=== PATIENT | female | born 1955 | race Caucasian/White ===

== ENCOUNTER 2019-10-28 05:52 | Inpatient (IN) ==
[2019-10-28] MEDS ORDERED: ONDANSETRON 4 MG/2 ML VIAL IV STA ×2 (06:39→10:00)
[2019-10-28] MEDS ORDERED: SODIUM CHLORIDE 0.9% 2,000 ML IV STA (06:39)
[2019-10-28 07:08] LABS: Basophils % 0.5 % (0.0-0.8); Eosinophils # 0.1 10*3/uL (0.0-0.87); Eosinophils % 0.8 % (0.00-10.9); Hematocrit 51.9 VOL% (35.7-47.0); Hemoglobin 17.6 GM/DL (12.0-16.0); Immature Granulocytes % 0.3 %; Immature Granulocytes Absolute 0.02 #; Lymphocytes # 1.5 10*3/uL (1.4-4.0); Lymphocytes % 24.8 % (21.3-54.2); Mean Corpuscular HGB Conc 33.9 GM/DL (32-36); Mean Platelet Volume 9.5 FL (9.6-12.0); Neutrophils % 60.6 % (38.7-73.9); Platelet Count 343 T/CUMM (130-400); Red Blood Count 5.58 MC/CUMM (3.8-5.5); Red Cell Distribution Width 12.5 % (9.3-17.3)
[2019-10-28 07:26] LABS: Albumin 4.7 G/DL (3.4-5.0); Bilirubin,Total 0.9 MG/DL (0.2-1.0); Calcium 9.6 MG/DL (8.5-10.1); Total Protein 8.9 G/DL (6.4-8.3)
[2019-10-28] MEDS ORDERED: HYDROmorphone 2 MG/1 ML VIAL ONE (09:58)
[2019-10-28] MEDS ORDERED: HYDROmorphone 2 MG/1 ML VIAL IV STA (10:00)
[2019-10-28] MEDS ORDERED: ACETAMINOPHEN 325 MG TABLET PO PRN (12:16)
[2019-10-28] MEDS: ENOXAPARIN 30 MG/0.3 ML SYRINGE SUBCUT SCH (13:45)
[2019-10-28] MEDS: SODIUM CHLORIDE 0.9% 1,000 ML IV SCH ×2 (13:46→21:05)
[2019-10-28] MEDS: ONDANSETRON 4 MG/2 ML VIAL IV PRN ×3 (14:00→21:01)
[2019-10-28] MEDS ORDERED: cefTRIAXone 1,000 MG in SYRINGE 1 EACH IV ONE (14:56)
[2019-10-28] MEDS ORDERED: LORazepam 1 MG TABLET PO PRN (14:59)
[2019-10-28 15:39] LABS: Apearance,Urine Slightly Hazy (Clear); Bacteria,Urine Occasional /HPF (Few); Bilirubin,Urine Negative (Negative); Blood, Urine Negative (Negative); Glucose,Urine (UA) Negative (Negative); Hyaline Casts,Urine 58 /LPF (0-3); Ketones,Urine 20 mg/dL (Negative); Mucus,Urine Moderate /LPF (Occasional); Nitrite,Urine Negative (Negative); Protein,Urine 30 MG/DL; RBC,Urine 5 /HPF (0-4); Squamous Epithelial Cell,Urine Occasional /HPF (0-10); Urine Color Amber (Yellow); Urine Specific Gravity 1.023 (1.001-1.035); Urine Urobilinogen < 2.0 EU/DL (0.2-1.0); WBC,Urine 5 /HPF (0-6)
[2019-10-28] MEDS: MORPHINE 4 MG/1 ML VIAL IV PRN ×2 (16:31→21:02)
[2019-10-28] MEDS: QUEtiapine 25 MG TABLET PO SCH (21:04)
[2019-10-28] MEDS: buPROPion 75 MG TABLET PO SCH (21:28)
[2019-10-29] MEDS: ONDANSETRON 4 MG/2 ML VIAL IV PRN ×4 (03:09→22:11)
[2019-10-29] MEDS: MORPHINE 4 MG/1 ML VIAL IV PRN ×4 (03:19→22:10)
[2019-10-29] MEDS: SODIUM CHLORIDE 0.9% 1,000 ML IV SCH ×4 (03:33→12:59)
[2019-10-29 06:47] LABS: Basophils % 0.3 % (0.0-0.8); Eosinophils # 0.1 10*3/uL (0.0-0.87); Eosinophils % 1.6 % (0.00-10.9); Hematocrit 40.3 VOL% (35.7-47.0); Hemoglobin 13.4 GM/DL (12.0-16.0); Immature Granulocytes % 0.2 %; Immature Granulocytes Absolute 0.01 #; Lymphocytes # 1.5 10*3/uL (1.4-4.0); Lymphocytes % 24.6 % (21.3-54.2); Mean Corpuscular HGB Conc 33.3 GM/DL (32-36); Mean Corpuscular Volume 94.6 FL (87-102); Mean Platelet Volume 9.5 FL (9.6-12.0); Monocytes % 12.6 % (1.7-12.7); Neutrophils % 60.7 % (38.7-73.9); Platelet Count 223 T/CUMM (130-400); Red Blood Count 4.26 MC/CUMM (3.8-5.5); Red Cell Distribution Width 12.7 % (9.3-17.3); White Blood Count 6.1 T/CUMM (4-12)
[2019-10-29] MEDS ORDERED: cefTRIAXone 1,000 MG in SYRINGE 1 EACH IV ONE (07:00)
[2019-10-29 07:23] LABS: Albumin 3.3 G/DL (3.4-5.0); Bilirubin,Total 0.5 MG/DL (0.2-1.0); Calcium 7.9 MG/DL (8.5-10.1); Osmolality,Calculated 287.3 MOS/KG (273-304); Thyroid Stimulating Hormone 1.94 uIU/ml (0.358-3.74); Total Protein 6.2 G/DL (6.4-8.3)
[2019-10-29] MEDS ORDERED: cefTRIAXone 1,000 MG VIAL ONE (08:59)
[2019-10-29] MEDS ORDERED: PANTOPRAZOLE 40 MG TABLET PO SCH (09:00)
[2019-10-29] MEDS ORDERED: SUGAMMADEX 200 MG/2 ML VIAL IV ONE (09:19)
[2019-10-29] MEDS: CITALOPRAM 20 MG TABLET PO SCH (12:56)
[2019-10-29] MEDS: atenoloL 50 MG TABLET PO SCH (12:56)
[2019-10-29] MEDS: CYANOCOBALAMIN 500 MCG TABLET PO SCH (12:58)
[2019-10-29] MEDS: buPROPion 75 MG TABLET PO SCH ×2 (12:58→20:19)
[2019-10-29] MEDS: PANTOPRAZOLE 40 MG TABLET PO SCH (12:58)
[2019-10-29] MEDS: ENOXAPARIN 30 MG/0.3 ML SYRINGE SUBCUT SCH (12:59)
[2019-10-29] MEDS ORDERED: MIDAZOLAM 2 MG/2 ML VIAL ONE (16:56)
[2019-10-29] MEDS ORDERED: LIDOCAINE 2% 5 ML VIAL ONE (16:56)
[2019-10-29] MEDS ORDERED: propofoL 200 MG/20 ML VIAL IV ONE (16:56)
[2019-10-29] MEDS ORDERED: fentaNYL 100 MCG/2 ML VIAL ONE (16:56)
[2019-10-29] MEDS ORDERED: ROCURONIUM 100 MG/10 ML VIAL IV ONE (16:57)
[2019-10-29] MEDS ORDERED: PHENYLEPHRINE 1 MG/10 ML SYRINGE IV ONE (16:57)
[2019-10-29] MEDS ORDERED: DEXAMETHASONE 4 MG/1 ML VIAL ONE (16:57)
[2019-10-29] MEDS ORDERED: ONDANSETRON 4 MG/2 ML VIAL ONE (16:57)
[2019-10-29] MEDS ORDERED: LACTATED RINGERS 1,000 ML IV ONE (16:57)
[2019-10-29] MEDS: QUEtiapine 25 MG TABLET PO SCH (20:19)
[2019-10-30 05:54] LABS: Basophils % 0.3 % (0.0-0.8); Eosinophils # 0.1 10*3/uL (0.0-0.87); Eosinophils % 1.6 % (0.00-10.9); Hematocrit 34.3 VOL% (35.7-47.0); Hemoglobin 11.7 GM/DL (12.0-16.0); Immature Granulocytes % 0.3 %; Immature Granulocytes Absolute 0.02 #; Lymphocytes # 1.9 10*3/uL (1.4-4.0); Lymphocytes % 30.6 % (21.3-54.2); Mean Corpuscular HGB Conc 34.1 GM/DL (32-36); Mean Corpuscular Volume 92.7 FL (87-102); Mean Platelet Volume 10.8 FL (9.6-12.0); Monocytes % 10.5 % (1.7-12.7); Neutrophils % 56.7 % (38.7-73.9); Platelet Count 152 T/CUMM (130-400); Red Cell Distribution Width 12.7 % (9.3-17.3); White Blood Count 6.1 T/CUMM (4-12)
[2019-10-30 06:30] LABS: Albumin 2.9 G/DL (3.4-5.0); Bilirubin,Total 0.6 MG/DL (0.2-1.0); Calcium 8.2 MG/DL (8.5-10.1); Total Protein 5.4 G/DL (6.4-8.3)
[2019-10-30 06:56] LABS: Platelet Estimate Adequate
[2019-10-30] MEDS: SODIUM CHLORIDE 0.9% 1,000 ML IV SCH ×2 (07:27→09:11)
[2019-10-30] MEDS: atenoloL 50 MG TABLET PO SCH (09:13)
[2019-10-30] MEDS: buPROPion 75 MG TABLET PO SCH (09:13)
[2019-10-30] MEDS: PANTOPRAZOLE 40 MG TABLET PO SCH (09:13)
[2019-10-30] MEDS: CITALOPRAM 20 MG TABLET PO SCH (09:13)
[2019-10-30] MEDS: POTASSIUM CHLORIDE 20 MEQ TABLET PO PRN ×4 (09:13→13:24)
[2019-10-30] MEDS: CYANOCOBALAMIN 500 MCG TABLET PO SCH (09:13)
[2019-10-30] MEDS: MORPHINE 4 MG/1 ML VIAL IV PRN (09:14)
[2019-10-30] MEDS: ONDANSETRON 4 MG/2 ML VIAL IV PRN (09:14)
[2019-10-30 12:22] VITALS: BP 106/71
[2019-10-30] MEDS ORDERED: ENOXAPARIN 40 MG/0.4 ML SYRINGE SUBCUT SCH (21:00)
[2019-11-01 16:15] LABS: Stone Source Kidney
== END 2019-10-30 15:45 | disposition home or self-care (01) | DRG 660 ==
LOC: N.ED 05:52 → SUATTDRO 12:16 → N.EDINP 12:16 → N.5E 12:49
PROVIDERS: ADMIT Emergency Medicine; ATTEND Hospitalist

== ENCOUNTER 2022-05-19 19:05 | Observation (INO) ==
[2022-05-19] MEDS ORDERED: SODIUM CHLORIDE 0.9% 1,000 ML IV STA (22:16)
[2022-05-19] MEDS ORDERED: KETOROLAC 30 MG/1 ML VIAL IV STA (22:16)
[2022-05-19] MEDS ORDERED: ONDANSETRON 4 MG/2 ML VIAL IV ONE (22:16)
[2022-05-19 22:45] LABS: Basophils # 0.1 10*3/uL (0.0-0.2); Basophils % 0.4 % (0.0-0.8); Eosinophils # 0.1 10*3/uL (0.0-0.87); Eosinophils % 0.4 % (0.00-10.9); Hematocrit 38.9 VOL% (35.7-47.0); Hemoglobin 13.4 GM/DL (12.0-16.0); Immature Granulocytes % 0.6 %; Immature Granulocytes Absolute 0.07 #; Lymphocytes # 1.2 10*3/uL (1.4-4.0); Lymphocytes % 10.4 % (21.3-54.2); Mean Corpuscular HGB Conc 34.4 GM/DL (32-36); Mean Corpuscular Volume 92.2 FL (87-102); Mean Platelet Volume 9.5 FL (9.6-12.0); Monocytes # 0.7 10*3/uL (0.11-0.8); Monocytes % 6.4 % (1.7-12.7); Neutrophils % 81.8 % (38.7-73.9); Platelet Count 225 T/CUMM (130-400); Red Blood Count 4.22 MC/CUMM (3.8-5.5); White Blood Count 11.5 T/CUMM (4-12)
[2022-05-19 23:09] LABS: Albumin 3.9 G/DL (3.4-5.0); Bilirubin,Total 0.6 MG/DL (0.20-1.00); Calcium 9.2 MG/DL (8.5-10.1); Osmolality,Calculated 282.3 MOS/KG (273-304); Potassium 3.1 MMOL/L (3.5-5.1); Total Protein 6.5 G/DL (6.4-8.2)
[2022-05-19 23:55] LABS: Calcium Oxalate Crystals,Urine Few /HPF (Few); Hyaline Casts,Urine 4 /LPF (0-3); Mucus,Urine Occasional /LPF (Occasional); RBC,Urine 58 /HPF (0-4); Squamous Epithelial Cell,Urine Occasional /HPF (0-10)
[2022-05-19 23:56] LABS: Urine Appearance Clear (Clear); Urine Color Yellow (Yellow); Urine pH 5.5 (4.5-8.0)
[2022-05-19 23:57] LABS: Bilirubin,Urine Negative (Negative); Blood, Urine Large mg/dL (Negative); Glucose,Urine (UA) Negative (Negative); Ketones,Urine Negative (Negative); Nitrite,Urine Negative (Negative); Protein,Urine Trace mg/dL (Negative); Urine Specific Gravity >= 1.030 (1.001-1.035); Urine Urobilinogen 0.2 eU/dL (<2.0)
[2022-05-20] MEDS ORDERED: HYDROmorphone 1 MG/1 ML SYRINGE IV STA (00:13)
[2022-05-20] MEDS ORDERED: PROMETHAZINE INJ 12.5 MG in SODIUM CHLORIDE 0.9% 50 ML IV STA (00:50)
[2022-05-20] MEDS ORDERED: MORPHINE 10 MG/1 ML VIAL IV PRN (00:51)
[2022-05-20] MEDS ORDERED: PROMETHAZINE 25 MG/1 ML VIAL IM PRN (00:51)
[2022-05-20] MEDS: DEXTROSE 5% NACL 0.45% 1,000 ML IV SCH ×2 (01:10→16:53)
[2022-05-20 06:47] LABS: Basophils % 0.4 % (0.0-0.8); Eosinophils % 0.2 % (0.00-10.9); Hematocrit 35.3 VOL% (35.7-47.0); Hemoglobin 12.1 GM/DL (12.0-16.0); Immature Granulocytes % 0.3 %; Immature Granulocytes Absolute 0.03 #; Lymphocytes # 1.8 10*3/uL (1.4-4.0); Lymphocytes % 18.7 % (21.3-54.2); Mean Corpuscular HGB Conc 34.3 GM/DL (32-36); Mean Corpuscular Volume 91.9 FL (87-102); Mean Platelet Volume 9.6 FL (9.6-12.0); Neutrophils % 69.4 % (38.7-73.9); Platelet Count 197 T/CUMM (130-400); Red Blood Count 3.84 MC/CUMM (3.8-5.5); Red Cell Distribution Width 13.1 % (9.3-17.3); White Blood Count 9.4 T/CUMM (4-12)
[2022-05-20 07:02] LABS: Osmolality,Calculated 286.8 MOS/KG (273-304); Potassium 3.1 MMOL/L (3.5-5.1)
[2022-05-20] MEDS ORDERED: fentaNYL 100 MCG/2 ML VIAL ONE (10:45)
[2022-05-20] MEDS ORDERED: propofoL 200 MG/20 ML VIAL IV ONE (10:46)
[2022-05-20] MEDS ORDERED: ONDANSETRON 4 MG/2 ML VIAL ONE (10:46)
[2022-05-20] MEDS ORDERED: LIDOCAINE 2% 5 ML VIAL ONE (10:46)
[2022-05-20] MEDS ORDERED: MIDAZOLAM 2 MG/2 ML VIAL ONE (10:51)
[2022-05-20] MEDS ORDERED: LACTATED RINGERS 1,000 ML IV SCH (11:30)
[2022-05-20] MEDS ORDERED: ePHEDrine 50 MG/ML VIAL ONE (12:17)
[2022-05-20] MEDS ORDERED: cefTRIAXone 1,000 MG VIAL ONE (12:27)
[2022-05-20] MEDS ORDERED: cefTRIAXone 1,000 MG in SODIUM CHLORIDE 0.9% 100 ML IV ONE (12:33)
[2022-05-20] MEDS: ONDANSETRON 4 MG/2 ML VIAL IV PRN ×2 (16:33→20:43)
[2022-05-20] MEDS: OMEPRAZOLE ODT 20 MG TABLET PO SCH (20:43)
[2022-05-20] MEDS: busPIRone 15 MG TABLET PO SCH (20:43)
[2022-05-20] MEDS: HYDROmorphone 1 MG/1 ML SYRINGE IV PRN (20:43)
[2022-05-21] MEDS: HYDROmorphone 1 MG/1 ML SYRINGE IV PRN (01:14)
[2022-05-21] MEDS: ONDANSETRON 4 MG/2 ML VIAL IV PRN (01:15)
[2022-05-21] MEDS: DEXTROSE 5% NACL 0.45% 1,000 ML IV SCH ×3 (04:00→08:40)
[2022-05-21 08:02] VITALS: BP 166/99
[2022-05-21] MEDS: OMEPRAZOLE ODT 20 MG TABLET PO SCH (08:28)
[2022-05-21] MEDS: busPIRone 15 MG TABLET PO SCH (08:29)
[2022-05-21] MEDS ORDERED: atenoloL 50 MG TABLET PO SCH (09:00)
[2022-05-21] MEDS ORDERED: ESCITALOPRAM 10 MG TABLET PO SCH (09:00)
[2022-05-21] MEDS ORDERED: buPROPion SR 150 MG TABLET PO SCH (09:00)
[2022-05-23 14:26] LABS: Stone Source Left Ureter
== END 2022-05-21 09:59 | disposition home or self-care (01) ==
LOC: N.ED 19:05 → N.5E 19:05
PROVIDERS: ADMIT Surgery; ATTEND Surgery